=== PATIENT | male | born 2000 | race Caucasian/White ===

== ENCOUNTER 2023-06-27 12:57 | Outpatient (OUT) | payer OTHER, SELFPAY ==
--- NOTE | 2023-06-27 13:02 | US_ITS ---
The [address] [address] Patient Name: HUSEYIN PATTON MRN: [id number] date: 2000 Sex: M Assigned Patient Location: US Current Patient Location: Accession/Order Number: [id number] Exam Date: 06/27/2023 13:05 Report Date: 06/28/2023 04:56 At the request of: JOSE QUILES Procedure: US soft tissue head and neck EXAM: US soft tissue head and neck HISTORY: Localized swelling, mass and lump R22.9 ; chronic posterior neck mass with increasing tenderness COMPARISON: XR cervical spine 06/27/2023 TECHNIQUE: Percutaneous ultrasound. FINDINGS: Subcutaneous mass within posterior neck 3.8 cm in length with densely calcified anterior wall causing shadowing and obscuring the rest of the mass. US/US soft tissue head and neck IMPRESSION: 1. Large, densely rim calcified subcutaneous mass within posterior neck. This correlates with findings on XR cervical spine study performed on the same day. 2. Ultrasound-guided tissue sampling could be attempted but given the degree of calcification, penetration of the mass by needle may not be possible. Electronically authenticated by: MASSIMO SUAREZ Date: 06/28/2023 04:56
--- NOTE | 2023-06-27 13:03 | XR_ITS ---
The [address] [address] Patient Name: HUSEYIN PATTON MRN: [id number] date: 2000 Sex: M Assigned Patient Location: US Current Patient Location: US Accession/Order Number: [id number] Exam Date: 06/27/2023 13:30 Report Date: 06/27/2023 23:20 At the request of: JOSE QUILES Procedure: XR cervical spine 2-3V EXAM: XR cervical spine 2-3V HISTORY: Localized swelling, mass and lump R22.9 COMPARISON: None. TECHNIQUE: 4 views cervical spine FINDINGS: Vertebral body heights and alignment are preserved. Mild disc height loss most severe at C5-6. The prevertebral soft tissues are within normal limits. Lung apices are clear. There is a soft tissue density posteriorly at C7 with a rounded density measuring up to 3.3 cm. XR/XR cervical spine 2-3V IMPRESSION: Mild degenerative disc disease as above. Soft tissue density posteriorly at C7 with hyperdense components which could reflect calcification. Consider CT of the neck with contrast for further evaluation. Electronically authenticated by: SID REVELES Date: 06/27/2023 23:20
== END 2023-06-27 12:58 | disposition home or self-care (01) ==
LOC: US 12:57
PROVIDERS: PCP Nurse Practitioner Family; Visit Provider Nurse Practitioner Family
DX: R22.9 Localized swelling, mass and lump, unspecified (principal)
CPT/HCPCS: 72040; 76536

== ENCOUNTER 2023-07-13 20:26 | Emergency (ER) | payer OTHER, SELFPAY ==
[2023-07-13 20:39] VITALS: BP 108/80; PULSE 90; RESP 18; TEMP 36.8; O2SAT 98; BMI 26.5
--- NOTE | 2023-07-13 21:01 | ED_ITS ---
HPI - General Adult General Chief complaint: Upper Respiratory Infection Stated complaint: covid Time Seen by Provider: 07/13/23 20:35 Source: patient Mode of arrival: walk-in Limitations: no limitations History of Present Illness HPI narrative: ill past couple of days with diarrhea and nausea. tested positive for COVID19 today. Not short of breath. no fever. States historically his symptoms usually worsen and he starts vomiting. Decided to come in now to get checked. No abdominal pain Onset (ago): day(s) Related Data Home Medications Medication Instructions Recorded Confirmed No Known Home Medications 07/13/23 07/13/23 Allergies Allergy/AdvReac Type Severity Reaction Status Date / Time No Known Drug Allergies Allergy Verified 07/13/23 20:37 Review of Systems ROS Status of ROS 10 or more systems reviewed and unremark able except as noted in history and below [facility] Social History Smoking status: Current some day smoker Exam Constitutional Vital Signs, click to edit/add: Last Vital Signs Temp 98.3 F 07/13/23 20:39 Pulse 90 07/13/23 20:39 Resp 18 07/13/23 20:39 BP 108/80 07/13/23 20:39 Pulse Ox 98 07/13/23 20:39 O2 Del Method Room Air 07/13/23 20:39 Common normals: no apparent distress, average body habitus, oriented x3, no limitations, healthy appearing and alert Eye Common normals: EOMs intact bilaterally and conjunctivae normal Respiratory Common normals: normal respiratory effort, no retractions, no use of accessory muscles and clear to auscultation bilaterally Cardio Common normals: regular rate, regular rhythm, S1 normal heart sound and S2 normal heart sound GI Common normals: Normal to inspection, nondistended, normoactive bowel sounds present, soft to palpation and non-tender Extremity Common normals: normal to inspection and full ROM Neuro Common normals: oriented x3, CN's II-XII intact bilaterally, moves all extremities and no focal motor deficits Psych Appearance: grossly normal Course Vital Signs Vital signs: Vital Signs Temperature 98.3 F 07/13/23 20:39 Pulse Rate 90 07/13/23 20:39 Respiratory Rate 18 07/13/23 20:39 Blood Pressure 108/80 07/13/23 20:39 Pulse Oximetry 98 07/13/23 20:39 Oxygen Delivery Method Room Air 07/13/23 20:39 Temperature 98.3 F 07/13/23 20:39 Pulse Rate 90 07/13/23 20:39 Respiratory Rate 18 07/13/23 20:39 Blood Pressure 108/80 07/13/23 20:39 Pulse Oximetry 98 07/13/23 20:39 Oxygen Delivery Method Room Air 07/13/23 20:39 Medical Decision Making MDM Narrative Medical decision making narrative: patient presents with diarrhea and nausea. Tested positive for COVID19. not short of breath and only mild cough. labs here WNL. Patient hydrated with NS. treated with zofran. Improved and discharged home with diagnosis of viral syndrome COVID19 positive Lab Data Labs: Lab Results 07/13/23 07/13/23 Range/Units 21:00 21:10 WBC 6.4 (4.0-11.0) 10^3/uL RBC 4.60 L (4.70-6.10) 10^6/uL Hgb 14.1 (14.0-18.0) g/dL Hct 40.7 L (42.0-54.0) % MCV 88.5 (80.0-94.0) fL MCH 30.7 (25.9-34.0) pg MCHC 34.6 (29.9-35.2) g/dL RDW 11.9 (11.0-15.0) % Plt Count 265 (150-450) 10^3/uL MPV 9.9 (9.5-13.5) fL Neut % (Auto) 58.2 (43.0-75.0) % Lymph % (Auto) 22.1 (20.5-60.0) % Izard % (Auto) 13.4 H (1.7-12.0) % Eos % (Auto) 5.5 (0.9-7.0) % Baso % (Auto) 0.5 (0.2-2.0) % Neut # (Auto) 3.7 (1.4-6.5) 10^3/uL Lymph # (Auto) 1.4 (1.2-3.8) 10^3/uL Izard # (Auto) 0.9 H (0.3-0.8) 10^3/uL Eos # (Auto) 0.4 (0.0-0.7) 10^3/uL Baso # (Auto) 0.0 (0.0-0.1) 10^3/uL Abs Immat Gran (auto) 0.02 (0.00-0.03) 10^3/uL Imm/Tot Granulo (auto) 0.3 (0.0-0.5) % Sodium 140 (136-145) mmol/L Potassium 4.2 (3.5-5.1) mmol/L Chloride 105 (98-107) mmol/L Carbon Dioxide 29.9 (21.0-32.0) mmol/L Anion Gap 9.3 BUN 7.0 (7.0-18.0) mg/dL Creatinine 0.77 (0.70-1.30) mg/dL Est GFR ( Amer) >60 (>=60) Est GFR (Non-Af Amer) >60 (>=60) BUN/Creatinine Ratio 9.1 Glucose 99 (74-106) mg/dL Calcium 8.9 (8.5-10.1) mg/dL Adenovirus (PCR) Not detected (NOT DETECTE) C. pneumoniae DNA (PCR) Not detected (NOT DETECTE) Coronavirus Type OC43 Not detected (NOT DETECTE) Coronavirus Type HKU1 Not detected (NOT DETECTE) Coronavirus Type 229E Not detected (NOT DETECTE) Coronavirus Type NL63 Not detected (NOT DETECTE) Human Metapneumovir PCR Not detected (NOT DETECTE) M. pneumoniae (PCR) Not detected (NOT DETECTE) Parainfluenza PCR Not detected (NOT DETECTE) Parainfluenza 2 (PCR) Not detected (NOT DETECTE) Parainfluenza 3 (PCR) Not detected (NOT DETECTE) Parainfluenza 4 (PCR) Not detected (NOT DETECTE) RSV (RT-PCR) Not detected (NOT DETECTE) Entero/Rhino (PCR) Not detected (NOT DETECTE) SARS-CoV-2 (PCR) Detected A (NOT DETECTE) Bordetella pertussis (PCR) Not detected (NOT DETECTE) B parapertussis DNA PCR Not detected (NOT DETECTE) Influenza Type A (PCR) Not detected (NOT DETECTE) Influenza Type B (PCR) Not detected (NOT DETECTE) Discharge Plan Discharge Chief Complaint: Upper Respiratory Infection Clinical Impression: COVID-19, Viral infection Patient Disposition: Home, Self-Care Prescriptions / Home Meds: No Action No Known Home Medications Instructions: Gastroenteritis (ED), COVID-19 (Coronavirus Disease 2019) (ED) Stand Alone Forms: Portal Instructions Referrals: JOSE QUILES [Primary Care Provider] - 1 week
[2023-07-13 21:08] LABS: Adenovirus NOT DETECTED (NOT DETECTE); Bordetella parapertussis NOT DETECTED (NOT DETECTE); Coronavirus 229E NOT DETECTED (NOT DETECTE); Coronavirus HKU1 NOT DETECTED (NOT DETECTE); Coronavirus NL63 NOT DETECTED (NOT DETECTE); Coronavirus OC43 NOT DETECTED (NOT DETECTE); Human Metapneumovirus NOT DETECTED (NOT DETECTE); Human Rhinovirus/Enterovirus NOT DETECTED (NOT DETECTE); Influenza A NOT DETECTED (NOT DETECTE); Influenza B NOT DETECTED (NOT DETECTE); Mycoplasma pneumoniae NOT DETECTED (NOT DETECTE); Parainfluenza Virus 1 NOT DETECTED (NOT DETECTE); Parainfluenza Virus 2 NOT DETECTED (NOT DETECTE); Parainfluenza Virus 3 NOT DETECTED (NOT DETECTE); Parainfluenza Virus 4 NOT DETECTED (NOT DETECTE); Respiratory Syncytial Virus NOT DETECTED (NOT DETECTE)
[2023-07-13 21:24] LABS: Basophils Percent Auto 0.5 % (0.2-2.0); Eosinophils Absolute Auto 0.4 10^3/uL (0.0-0.7); Eosinophils Percent Auto 5.5 % (0.9-7.0); Hematocrit 40.7 % (42.0-54.0); Hemoglobin 14.1 g/dL (14.0-18.0); Immature Granulocytes Abs Auto 0.02 10^3/uL (0.00-0.03); Immature Granulocytes Pct Auto 0.3 % (0.0-0.5); Lymphocytes Absolute Auto 1.4 10^3/uL (1.2-3.8); Lymphocytes Percent Auto 22.1 % (20.5-60.0); Mean Corpuscular HGB Conc 34.6 g/dL (29.9-35.2); Mean Corpuscular Hemoglobin 30.7 pg (25.9-34.0); Mean Corpuscular Volume 88.5 fL (80.0-94.0); Mean Platelet Volume 9.9 fL (9.5-13.5); Monocytes Absolute Auto 0.9 10^3/uL (0.3-0.8); Monocytes Percent Auto 13.4 % (1.7-12.0); Neutrophils Absolute Auto 3.7 10^3/uL (1.4-6.5); Neutrophils Percent Auto 58.2 % (43.0-75.0); Platelet Count 265 10^3/uL (150-450); Red Cell Distribution Width 11.9 % (11.0-15.0); White Blood Count 6.4 10^3/uL (4.0-11.0)
[2023-07-13] MEDS: 0.9 % SODIUM CHLORIDE 1,000 ML 999 ML IV (21:26)
[2023-07-13 21:36] LABS: Anion Gap 9.3; BUN Creatinine Ratio 9.1; Calcium 8.9 mg/dL (8.5-10.1); Carbon Dioxide 29.9 mmol/L (21.0-32.0); Chloride 105 mmol/L (98-107); Estimated GFR (African America >60 (>=60); Estimated GFR (Non-African Ame >60 (>=60); Glucose 99 mg/dL (74-106); Potassium 4.2 mmol/L (3.5-5.1); Sodium 140 mmol/L (136-145)
[2023-07-13 22:25] LABS: SARS-CoV-2 DETECTED (NOT DETECTE)
[2023-07-13 22:46] VITALS: BP 117/70; PULSE 78; O2SAT 98
[2023-07-13] MEDS: ONDANSETRON PF 4 MG/2 ML VIAL IV (22:46)
== END 2023-07-13 22:47 | disposition home or self-care (01) ==
PROVIDERS: Emergency Provider Internal Medicine; PCP Nurse Practitioner Family
DX: U07.1 COVID-19 (principal); F17.200 Nicotine dependence, unspecified, uncomplicated
CPT/HCPCS: 0202U; 36415; 80048; 85025; 96361; 96374; 99284